=== PATIENT | female | born 2000 | race Caucasian/White ===

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

== ENCOUNTER → 2023-02-04 | Outpatient (CLI) | payer BC, OTHER ==
[~2023-02-04] MED LIST changes: +ALBU2.5V10; -ALBU83IN; -LEVO2.5S3; +LEVO2.5S5; +PRED15SO24; -PRED5SOL10; +SULF1SUS12 PO
[2023-02-04 16:01] LABS: HEMATOCRIT 38.9 % (36.0-47.0); MEAN CORPUSCULAR HEMOGLOBIN 26.4 pg (27.0-33.0); MEAN CORPUSCULAR HGB CONC 30.8 g/dl (32.0-36.5); MEAN CORPUSCULAR VOLUME 85.7 fl (80.0-96.0); PLATELET COUNT, AUTOMATED 190 10^3/uL (150-450); RED BLOOD COUNT 4.54 10^6/uL (4.00-5.40); WHITE BLOOD COUNT 2.1 10^3/uL (4.0-10.0)
[2023-02-04 16:36] LABS: ERYTHROCYTE SEDIMENTATION RATE 34 mm/hr (0-20)
[2023-02-04 18:09] LABS: MONO REFLEX EBV COMP NEGATIVE (NEGATIVE)
[2023-02-04 18:10] LABS: ALKALINE PHOSPHATASE 62 U/L (46-116); ALT/SGPT 25 U/L (7.0-40); AST/SGOT 27 U/L (<34); BILIRUBIN,TOTAL 0.3 MG/DL (0.3-1.2); BLOOD UREA NITROGEN 6 MG/DL (9-23); CARBON DIOXIDE LEVEL 22 MMOL/L (20-31); CHLORIDE LEVEL 105 MMOL/L (98-107); CREATININE FOR GFR 0.61 MG/DL (0.55-1.30); GLUCOSE, FASTING 88 MG/DL (60-100); POTASSIUM SERUM 3.7 MMOL/L (3.5-5.1); SODIUM LEVEL 141 MMOL/L (136-145); TOTAL PROTEIN 7.6 G/DL (5.7-8.2)
[2023-02-04 18:51] LABS: ATYPICAL LYMPH 3 % (0-5); BASOPHILS 2 % (0-1); EOSINOPHILS 1 % (0-3); LYMPHOCYTES 37 % (16-44); MONOCYTES 8 % (0-5); NEUTROPHILS 39 % (28-66)
[2023-02-04 18:52] LABS: HYPOCHROMASIA 1+; PLATELET ESTIMATE NORMAL (NORMAL)
[2023-02-08 13:07] LABS: EBV AB TO NUCLEAR ANTIGEN >600.0 U/mL (0.0-17.9); EBV VIRAL CAPSID AG IgM <36.0 U/mL (0.0-35.9)
== END ==
LOC: M LAB 14:47
PROVIDERS: ATTEND Nurse Practitioner Adult Health
DX: R50.9 Fever, unspecified (principal)

== ENCOUNTER 2023-02-05 14:58 | Emergency (ER) | payer BC, OTHER ==
[~2023-02-05] VITALS: Ht 160 cm; Wt 61.6 kg
[~2023-02-05 14:58] MED LIST changes: -SULF1SUS12 PO
[2023-02-05 17:43] LABS: BASO % 0.7 % (0.0-1.0); EOS % 0.3 % (0.0-3.0); HEMATOCRIT 39.9 % (36.0-47.0); HEMOGLOBIN 12.7 g/dl (12.0-15.5); LYMPH # 0.9 10^3/uL (1.5-5.0); LYMPH % 31.1 % (24.0-44.0); MEAN CORPUSCULAR HEMOGLOBIN 26.9 pg (27.0-33.0); MEAN CORPUSCULAR HGB CONC 31.8 g/dl (32.0-36.5); MEAN CORPUSCULAR VOLUME 84.5 fl (80.0-96.0); MONO # 0.3 10^3/uL (0.0-0.8); MONO % 8.7 % (2.0-8.0); NEUTROPHILS # 1.7 10^3/uL (1.5-8.5); NEUTROPHILS % 58.9 % (36.0-66.0); PLATELET COUNT, AUTOMATED 188 10^3/uL (150-450); RED BLOOD COUNT 4.72 10^6/uL (4.00-5.40); WHITE BLOOD COUNT 2.9 10^3/uL (4.0-10.0)
[2023-02-05 18:06] LABS: BLOOD UREA NITROGEN 7 MG/DL (9-23); CALCIUM LEVEL 8.9 MG/DL (8.5-10.1); CARBON DIOXIDE LEVEL 25 MMOL/L (20-31); CHLORIDE LEVEL 103 MMOL/L (98-107); CREATININE FOR GFR 0.64 MG/DL (0.55-1.30); GLUCOSE, FASTING 85 MG/DL (60-100); POTASSIUM SERUM 3.3 MMOL/L (3.5-5.1); SODIUM LEVEL 139 MMOL/L (136-145)
[2023-02-05] MEDS ORDERED: SULF1SUS12 PO (19:56)
[2023-02-05 20:20] VITALS: BP 113/65; TEMP 98.9; O2SAT 100
== END 2023-02-05 20:26 | disposition home or self-care (01) ==
LOC: M ED 16:01
DX: B34.9 Viral infection, unspecified (principal); R82.71 Bacteriuria; J45.909 Unspecified asthma, uncomplicated; K21.9 Gastro-esophageal reflux disease without esophagitis; Z88.1 Allergy status to other antibiotic agents; Z79.51 Long term (current) use of inhaled steroids; Z79.899 Other long term (current) drug therapy

== ENCOUNTER → 2023-07-30 | Outpatient (CLI) | payer BC, OTHER ==
[~2023-07-30] MED LIST changes: +SULF1SUS12 PO
== END ==
LOC: M LAB 14:27
PROVIDERS: ATTEND Nurse Practitioner Family
DX: E55.9 Vitamin D deficiency, unspecified (principal); R05.9 Cough, unspecified

== ENCOUNTER → 2024-07-12 | Outpatient (CLI) | payer BC ==
[2024-07-12 11:24] LABS: BASO # 0.1 10^3/uL (0.0-0.2); EOS # 0.3 10^3/uL (0.0-0.5); EOS % 6.9 % (0.0-3.0); HEMATOCRIT 37.1 % (36.0-47.0); HEMOGLOBIN 11.8 g/dl (12.0-15.5); LYMPH # 2.1 10^3/uL (1.5-5.0); LYMPH % 43.1 % (24.0-44.0); MEAN CORPUSCULAR HEMOGLOBIN 26.6 pg (27.0-33.0); MEAN CORPUSCULAR HGB CONC 31.8 g/dl (32.0-36.5); MEAN CORPUSCULAR VOLUME 83.6 fl (80.0-96.0); MONO # 0.4 10^3/uL (0.0-0.8); MONO % 8.8 % (2.0-8.0); NEUTROPHILS # 1.9 10^3/uL (1.5-8.5); PLATELET COUNT, AUTOMATED 364 10^3/uL (150-450); RED BLOOD COUNT 4.44 10^6/uL (4.00-5.40); WHITE BLOOD COUNT 4.8 10^3/uL (4.0-10.0)
[2024-07-12 11:53] LABS: PERCENT SATURATION 7.8 % (13.2-45.0)
[2024-07-12 11:54] LABS: FERRITIN 3.5 NG/ML (7.3-270.7); FREE T4 1.12 NG/DL (0.89-1.76); THYROID STIMULATING HORMONE 3.362 uIU/ML (0.55-4.78)
[2024-07-12 11:55] LABS: FOLATE 20.5 NG/ML (>5.4); TOTAL 25(OH) VITAMIN D 26.4 NG/ML (20.0-100.0)
== END ==
LOC: M LAB 10:47
PROVIDERS: ATTEND Nurse Practitioner Adult Health
DX: D50.9 Iron deficiency anemia, unspecified (principal); R94.6 Abnormal results of thyroid function studies; R53.83 Other fatigue

== ENCOUNTER 2024-07-26 10:50 | Outpatient (CLI) | payer BC ==
[~2024-07-26] VITALS: Ht 160 cm; Wt 64.0 kg
[2024-07-26 10:50] VITALS: BP 137/79; O2SAT 100
[2024-07-26] MEDS: FERRIC CARBOXYMALTOSE 750 MG (VIAL MATE) IN 100ML NS IV ONE (10:57)
[2024-07-26 11:30] VITALS: BP 107/69; O2SAT 100
== END 2024-07-26 11:35 | disposition home or self-care (01) ==
LOC: M INFU 10:50
PROVIDERS: ATTEND Nurse Practitioner Adult Health
DX: D50.9 Iron deficiency anemia, unspecified (principal); Z88.1 Allergy status to other antibiotic agents
CPT/HCPCS: 96365; J1439

== ENCOUNTER 2024-08-01 11:54 | Outpatient (CLI) | payer BC ==
[~2024-08-01] VITALS: Ht 160 cm; Wt 63.6 kg
[2024-08-01 12:00] VITALS: BP 125/65; O2SAT 100
[2024-08-01] MEDS: FERRIC CARBOXYMALTOSE 750 MG (VIAL MATE) IN 100ML NS IV ONE (12:12)
== END 2024-08-01 12:35 ==
LOC: M INFU 11:54
PROVIDERS: ATTEND Nurse Practitioner Adult Health
DX: D50.9 Iron deficiency anemia, unspecified (principal); Z88.1 Allergy status to other antibiotic agents
CPT/HCPCS: 96365; J1439

== ENCOUNTER → 2024-10-24 | Outpatient (CLI) | payer BC ==
[2024-10-24 09:19] LABS: BASO % 0.5 % (0.0-1.0); EOS # 0.2 10^3/uL (0.0-0.5); EOS % 3.8 % (0.0-3.0); HEMATOCRIT 39.3 % (36.0-47.0); HEMOGLOBIN 12.9 g/dl (12.0-15.5); LYMPH # 1.4 10^3/uL (1.5-5.0); LYMPH % 33.7 % (24.0-44.0); MEAN CORPUSCULAR HEMOGLOBIN 28.8 pg (27.0-33.0); MEAN CORPUSCULAR HGB CONC 32.8 g/dl (32.0-36.5); MEAN CORPUSCULAR VOLUME 87.7 fl (80.0-96.0); MONO # 0.5 10^3/uL (0.0-0.8); MONO % 11.1 % (2.0-8.0); NEUTROPHILS # 2.2 10^3/uL (1.5-8.5); NEUTROPHILS % 50.7 % (36.0-66.0); PLATELET COUNT, AUTOMATED 325 10^3/uL (150-450); RED BLOOD COUNT 4.48 10^6/uL (4.00-5.40); WHITE BLOOD COUNT 4.2 10^3/uL (4.0-10.0)
[2024-10-24 09:54] LABS: PERCENT SATURATION 50.8 % (13.2-45.0)
[2024-10-24 09:58] LABS: THYROID STIMULATING HORMONE 1.84 uIU/ML (0.55-4.78)
[2024-10-24 09:59] LABS: FREE T4 1.06 NG/DL (0.89-1.76)
== END ==
LOC: M LAB 08:53
PROVIDERS: ATTEND Nurse Practitioner Adult Health
DX: D50.9 Iron deficiency anemia, unspecified (principal)